=== PATIENT | male | born 1945 | race Caucasian/White ===

== ENCOUNTER 2022-09-03 07:21 | Inpatient (IN) | payer MEDICARE ==
[~2022-09-03] VITALS: Ht 177.8 cm; Wt 89.7 kg
[~2022-09-03 07:21] MED LIST: BIMA12.5OS OS; BRIM5DRO OP
[2022-09-03] MEDS ORDERED: 0.9%NACL 1000ML 1,000 ML IV SCH (08:00)
[2022-09-03 08:09] LABS: BASOPHILS % (AUTO) 0.4 % (0.0-5.0); EOSINOPHILS % (AUTO) 0.4 % (0.0-8.0); HEMATOCRIT 41.4 % (42-54); LYMPHOCYTES % (AUTO) 18.7 % (21.0-51.0); MEAN CORPUSCULAR HEMOGLOBIN 30.5 pg (27.0-33.0); MEAN CORPUSCULAR HGB CONC 34.5 g/dL (32.0-36.0); MEAN CORPUSCULAR VOLUME 88.3 fL (79-99); MONOCYTES % (AUTO) 9.1 % (3.0-13.0); PLATELET COUNT (AUTO) 246 K/uL (130-400); RED BLOOD CELL COUNT(AUTO) 4.69 MIL/uL (4.50-6.20); RED CELL DISTRIBUTION WIDTH 12.4 % (11.0-15.5); WHITE BLOOD COUNT (AUTO) 5.6 K/uL (4.8-10.8)
[2022-09-03 08:22] LABS: ALBUMIN 3.9 g/dL (3.5-5.0); CREATININE 0.9 mg/dL (0.5-1.5); POTASSIUM 3.8 mmol/L (3.5-5.1)
[2022-09-03 09:06] LABS: APPEARANCE,URINE CLEAR (CLEAR); BILIRUBIN,URINE NEGATIVE (NEGATIVE); COLOR,URINE YELLOW (YELLOW); GLUCOSE, URINE (UA) 200 mg/dL (NEGATIVE); KETONES,URINE 60 mg/dL (NEGATIVE); LEUKOCYTE ESTERASE ,URINE NEGATIVE Leu/uL (NEGATIVE); NITRATE,URINE NEGATIVE (NEGATIVE); OCCULT BLOOD,URINE NEGATIVE (NEGATIVE); PH,URINE 5.5 (5.0-8.0); PROTEIN,URINE 30 mg/dL (NEGATIVE); UROBILINOGEN,URINE 0.2 mg/dL (0.2-1.0)
[2022-09-03 09:20] LABS: BACTERIA,URINE RARE /HPF (None Seen); MUCUS,URINE RARE LPF (None Seen); SQUAMOUS EPITHELIAL CELL,UR RARE /HPF (0-2)
[2022-09-03 11:45] LABS: INR 0.94 (0.85-1.15); PROTHROMBIN TIME 10.3 SEC (9.6-11.6)
[2022-09-03 11:46] LABS: PARTIAL THROMBOPLASTIN TIME 27.2 SEC (26.3-35.5)
[2022-09-03 11:55] LABS: HEMOGLOBIN A1C 9.2 % (4.0-6.0); THYROID STIMULATING HORMONE 1.57 uIU/mL (0.36-3.74)
[2022-09-03] MEDS: 0.9%NACL 1000ML 1,000 ML IV SCH (15:01)
[2022-09-03] MEDS: INSULIN HUMULIN R 100 UNIT/ML 3ML SQ SCH ×3 (16:30→20:19)
[2022-09-03] MEDS ORDERED: METF-444 PO (17:36)
[2022-09-03] MEDS ORDERED: NETA2.5D OS (17:36)
[2022-09-03] MEDS ORDERED: CITA-107 PO (17:36)
[2022-09-03] MEDS ORDERED: ATOR20TA65 PO (17:36)
[2022-09-03] MEDS ORDERED: AMLO-257 PO (17:36)
[2022-09-03 18:10] VITALS: BP 143/78
[2022-09-03 19:40] VITALS: BP 155/91
[2022-09-03] MEDS: TIMOLOL OP SCH (21:00)
[2022-09-03] MEDS: Bimatoprost (Lumigan 0.01% Ophth Soln) OS SCH (21:00)
[2022-09-03] MEDS: NETARSUDIL MESYLATE OS SCH (21:00)
[2022-09-03] MEDS: BRIMONIDINE TARTRATE OP SCH (21:00)
[2022-09-03] MEDS: ATORVASTATIN 20 MG TABLET PO SCH (21:18)
[2022-09-03] MEDS ORDERED: HALOPERIDOL INJ 5 MG/ML VIAL IM ONE (23:00)
[2022-09-03 23:35] VITALS: BP 119/70
[2022-09-04] MEDS: 0.9%NACL 1000ML 1,000 ML IV SCH ×2 (00:50→15:02)
[2022-09-04 04:00] VITALS: BP 115/67
[2022-09-04] MEDS: INSULIN HUMULIN R 100 UNIT/ML 3ML SQ SCH ×5 (06:41→20:18)
[2022-09-04 07:28] LABS: BASOPHILS % (AUTO) 0.5 % (0.0-5.0); EOSINOPHILS % (AUTO) 1.1 % (0.0-8.0); HEMATOCRIT 42.5 % (42-54); LYMPHOCYTES % (AUTO) 29.2 % (21.0-51.0); MEAN CORPUSCULAR HEMOGLOBIN 30.5 pg (27.0-33.0); MEAN CORPUSCULAR HGB CONC 33.9 g/dL (32.0-36.0); MONOCYTES % (AUTO) 9.8 % (3.0-13.0); PLATELET COUNT (AUTO) 239 K/uL (130-400); RED BLOOD CELL COUNT(AUTO) 4.72 MIL/uL (4.50-6.20); RED CELL DISTRIBUTION WIDTH 12.3 % (11.0-15.5); WHITE BLOOD COUNT (AUTO) 5.6 K/uL (4.8-10.8)
[2022-09-04 07:46] VITALS: BP 148/87
[2022-09-04 07:57] LABS: CREATININE 0.8 mg/dL (0.5-1.5); POTASSIUM 3.4 mmol/L (3.5-5.1)
[2022-09-04] MEDS: TIMOLOL OP SCH ×2 (09:00→20:19)
[2022-09-04] MEDS: BRIMONIDINE TARTRATE OP SCH ×2 (09:00→20:19)
[2022-09-04] MEDS: ENOXAPARIN SODIUM 30 MG/0.3 ML SQ SCH (09:36)
[2022-09-04] MEDS: AMLODIPINE 5 MG TAB PO SCH (09:36)
[2022-09-04 11:09] VITALS: BP 147/77
[2022-09-04] MEDS: CITALOPRAM 20 MG TABLET PO SCH (11:12)
[2022-09-04 16:00] VITALS: BP 154/83
[2022-09-04] MEDS ORDERED: KCL 20 MEQ ERTAB PO PRN (16:30)
[2022-09-04] MEDS ORDERED: POTASSIUM CHLORIDE 10% ELIXIR 20 MEQ/15 ML UDCUP PO PRN (16:30)
[2022-09-04] MEDS ORDERED: POTASSIUM CHLORIDE 20MEQ/100ML 100 ML IV PRN (16:30)
[2022-09-04 19:00] VITALS: BP 153/84
[2022-09-04] MEDS: ATORVASTATIN 20 MG TABLET PO SCH (20:18)
[2022-09-04] MEDS: NETARSUDIL MESYLATE OS SCH (20:19)
[2022-09-04] MEDS: Bimatoprost (Lumigan 0.01% Ophth Soln) OS SCH (20:19)
[2022-09-04 23:36] VITALS: BP 152/72
[2022-09-05] VITALS (8 sets, daily range): BP systolic 121–181; BP diastolic 67–86
[2022-09-05] MEDS: 0.9%NACL 1000ML 1,000 ML IV SCH (03:29)
[2022-09-05] MEDS ORDERED: HYDRALAZINE 20MG/ML VIAL IV PRN (05:00)
[2022-09-05] MEDS: INSULIN HUMULIN R 100 UNIT/ML 3ML SQ SCH ×4 (06:40→20:50)
[2022-09-05] MEDS: TIMOLOL OP SCH ×2 (08:17→20:53)
[2022-09-05] MEDS: BRIMONIDINE TARTRATE OP SCH ×2 (08:17→20:53)
[2022-09-05] MEDS: DONEPEZIL HCL 5 MG TAB PO SCH (09:12)
[2022-09-05] MEDS: AMLODIPINE 5 MG TAB PO SCH (09:12)
[2022-09-05] MEDS: ENOXAPARIN SODIUM 30 MG/0.3 ML SQ SCH (09:13)
[2022-09-05] MEDS: CITALOPRAM 20 MG TABLET PO SCH (12:45)
[2022-09-05] MEDS: ATORVASTATIN 20 MG TABLET PO SCH (20:49)
[2022-09-05] MEDS: Bimatoprost (Lumigan 0.01% Ophth Soln) OS SCH (20:52)
[2022-09-05] MEDS: NETARSUDIL MESYLATE OS SCH (20:52)
[2022-09-05] MEDS ORDERED: TAMSULOSIN HCL 0.4 MG CAP.ER.24H PO SCH (21:00)
[2022-09-06 04:00] VITALS: BP 142/75
[2022-09-06] MEDS: INSULIN HUMULIN R 100 UNIT/ML 3ML SQ SCH ×3 (06:04→16:11)
[2022-09-06 08:00] VITALS: BP 159/88
[2022-09-06] MEDS: ENOXAPARIN SODIUM 30 MG/0.3 ML SQ SCH (08:58)
[2022-09-06] MEDS: AMLODIPINE 5 MG TAB PO SCH (08:58)
[2022-09-06] MEDS: DONEPEZIL HCL 5 MG TAB PO SCH (08:58)
[2022-09-06] MEDS: TIMOLOL OP SCH (08:59)
[2022-09-06] MEDS: BRIMONIDINE TARTRATE OP SCH (08:59)
[2022-09-06 12:00] VITALS: BP 137/71
[2022-09-06] MEDS: CITALOPRAM 20 MG TABLET PO SCH (14:03)
== END 2022-09-06 18:20 | DRG 74 ==
LOC: EDH 07:21 → EDHIP 11:15 → 4BH 18:10
PROVIDERS: ADMIT Internal Medicine; ATTEND Internal Medicine
DX: E11.42 Type 2 diabetes mellitus with diabetic polyneuropathy (principal); F02.82 Dementia in other diseases classified elsewhere, unspecified severity, with psychotic disturbance; E78.5 Hyperlipidemia, unspecified; G30.9 Alzheimer's disease, unspecified; H54.8 Legal blindness, as defined in USA; I10 Essential (primary) hypertension; R29.6 Repeated falls; W18.39XA Other fall on same level, initial encounter; Y93.89 Activity, other specified; Y92.89 Other specified places as the place of occurrence of the external cause; Y99.8 Other external cause status; Z91.81 History of falling
CPT/HCPCS: 36415; 70450; 71045; 80048; 80053; 81001; 82550; 82607; 82746; 82948; 83036; 83605; 83735; 84443; 84484; 85025; 85610; 85730; 87040; 87088; 92610; 93005; 93306; 93356; 93880; 97039; G0378; J0360; J1630; J1650; J1815; J7030

== ENCOUNTER 2022-12-20 13:02 | Emergency (ER) | payer MEDICARE ==
[~2022-12-20] VITALS: Ht 177.8 cm; Wt 81.6 kg
[~2022-12-20 13:02] MED LIST changes: +AMLO-257 PO; +ATOR20TA65 PO; +CITA-107 PO; +METF-444 PO; +NETA2.5D OS
[2022-12-20 13:26] VITALS: O2SAT 93
[2022-12-20 15:20] LABS: APPEARANCE,URINE TURBID (CLEAR); COLOR,URINE BROWN (YELLOW)
[2022-12-20 15:21] LABS: LEUKOCYTE ESTERASE ,URINE LARGE Leu/uL (NEGATIVE)
[2022-12-20 15:22] LABS: NITRATE,URINE NEGATIVE (NEGATIVE); UROBILINOGEN,URINE 0.2 mg/dL (0.2-1.0)
[2022-12-20 15:23] LABS: OCCULT BLOOD,URINE LARGE (NEGATIVE); PROTEIN,URINE 200 (2+) mg/dL (NEGATIVE)
[2022-12-20 15:24] LABS: GLUCOSE, URINE (UA) 100 mg/dL (NEGATIVE)
[2022-12-20 15:25] LABS: BILIRUBIN,URINE Small mg/dL (NEGATIVE); KETONES,URINE 15 mg/dL (NEGATIVE)
[2022-12-20 15:29] LABS: BACTERIA,URINE Many /HPF (None Seen); WBC,URINE TNTC /HPF (0-1)
[2022-12-20 16:34] LABS: BASOPHILS # (AUTO) 0.02 K/uL (0.00-0.20); BASOPHILS % (AUTO) 0.2 % (0.0-5.0); EOSINOPHILS # (AUTO) 0.04 K/uL (0.00-0.70); EOSINOPHILS % (AUTO) 0.4 % (0.0-8.0); IMMATURE GRANULOCYTE ABSOLUTE 0.05 K/uL (0-1); LYMPHOCYTES # (AUTO) 1.2 K/uL (1.0-4.8); LYMPHOCYTES % (AUTO) 11.3 % (21.0-51.0); MEAN CORPUSCULAR HEMOGLOBIN 29.3 pg (27.0-33.0); MEAN CORPUSCULAR HGB CONC 30.6 g/dL (32.0-36.0); MEAN CORPUSCULAR VOLUME 95.8 fL (79-99); MONOCYTES # (AUTO) 0.3 K/uL (0.1-1.0); MONOCYTES % (AUTO) 2.9 % (3.0-13.0); NEUTROPHILS # (AUTO) 8.7 K/uL (1.8-7.7); NEUTROPHILS % (AUTO) 84.7 % (40.0-77.0); PLATELET COUNT (AUTO) 215 K/uL (130-400); RED BLOOD CELL COUNT(AUTO) 5.22 MIL/uL (4.50-6.20); RED CELL DISTRIBUTION WIDTH 13.7 % (11.0-15.5); WHITE BLOOD COUNT (AUTO) 10.3 K/uL (4.8-10.8)
[2022-12-20 16:51] LABS: ALBUMIN 1.9 g/dL (3.5-5.0); BILIRUBIN,TOTAL 0.4 mg/dL (0.2-1.0); CREATININE 1.6 mg/dL (0.5-1.5); POTASSIUM 3.1 mmol/L (3.5-5.1); TOTAL PROTEIN, SERUM 7.5 g/dL (6.0-8.3)
[2022-12-20] MEDS ORDERED: ZOSYN 3.375GM +NS 50ML IVPB STA (17:18)
[2022-12-20] MEDS ORDERED: 0.9%NACL 1000ML 1,000 ML IV ONE (17:30)
[2022-12-20] MEDS ORDERED: CEPH500B PO (17:40)
[2022-12-20 17:41] VITALS: BP 109/58; PULSE 78; RESP 18
[2022-12-22] MEDS ORDERED: ACET650S14 RC (03:22)
[2022-12-22] MEDS ORDERED: BIMA12.5OS OS (03:25)
[2022-12-22] MEDS ORDERED: BISA10SU11 RC (03:27)
[2022-12-22] MEDS ORDERED: DONE5TAB33 PO (03:28)
[2022-12-22] MEDS ORDERED: TAMS-1 PO (03:29)
[2022-12-22] MEDS ORDERED: LORA2ORA5 PO (03:30)
[2022-12-22] MEDS ORDERED: morphine concentrate PO (03:33)
[2022-12-22] MEDS ORDERED: PROM25TA7 PO (03:34)
[2022-12-22] MEDS ORDERED: SENN-295 PO (03:36)
[2022-12-22] MEDS ORDERED: INSLAN SQ (03:40)
== END 2022-12-20 21:04 | disposition home or self-care (01) ==
LOC: EDH 13:02
DX: N39.0 Urinary tract infection, site not specified (principal); E87.0 Hyperosmolality and hypernatremia; Z51.5 Encounter for palliative care; Z46.6 Encounter for fitting and adjustment of urinary device; E11.9 Type 2 diabetes mellitus without complications; Z79.84 Long term (current) use of oral hypoglycemic drugs; Z79.899 Other long term (current) drug therapy; Z98.890 Other specified postprocedural states; Z88.8 Allergy status to other drugs, medicaments and biological substances
CPT/HCPCS: 99283; 96360; 80053; 85025; 87077; 87088; 87186; 81001; 36415; J7030

== ENCOUNTER 2023-01-05 11:42 | Emergency (ER) | payer MEDICARE ==
[~2023-01-05] VITALS: Ht 177.8 cm; Wt 68.0 kg
[~2023-01-05 11:42] MED LIST changes: +ACET650S14 RC; +AMOX1TAB16 PO; +ASPI-1005 PO; -ATOR20TA65 PO; +BISA10SU11 RC; +DONE5TAB33 PO; +INSLAN SQ; +LORA2ORA5 PO; +PROM25TA7 PO; +SENN-295 PO; +TAMS-1 PO; +morphine concentrate PO
[2023-01-05 11:44] VITALS: BP 114/64; PULSE 74; RESP 16
[2023-01-05 12:49] LABS: APPEARANCE,URINE CLOUDY (CLEAR); BILIRUBIN,URINE NEGATIVE (NEGATIVE); COLOR,URINE YELLOW (YELLOW); GLUCOSE, URINE (UA) NEGATIVE (NEGATIVE); KETONES,URINE NEGATIVE (NEGATIVE); LEUKOCYTE ESTERASE ,URINE 250 Leu/uL (NEGATIVE); NITRATE,URINE NEGATIVE (NEGATIVE); PH,URINE 5.5 (5.0-8.0); PROTEIN,URINE 20 mg/dL (NEGATIVE); UROBILINOGEN,URINE 0.2 mg/dL (0.2-1.0)
[2023-01-05 12:51] LABS: ADD UA MICROSCOPIC YES
[2023-01-05 12:57] LABS: BACTERIA,URINE FEW /HPF (None Seen); MUCUS,URINE RARE LPF (None Seen); RBC,URINE >100 /HPF (0-1); WBC,URINE 51-100 /HPF (0-1); YEAST,URINE BUDDING MANY /HPF (None Seen)
[2023-01-05] MEDS ORDERED: CEPH500B PO (12:57)
== END 2023-01-05 13:59 | disposition home or self-care (01) ==
LOC: EDH 11:42
DX: N39.0 Urinary tract infection, site not specified (principal); I10 Essential (primary) hypertension; E11.9 Type 2 diabetes mellitus without complications; F03.90 Unspecified dementia, unspecified severity, without behavioral disturbance, psychotic disturbance, mood disturbance, and anxiety; F41.9 Anxiety disorder, unspecified; Z91.018 Allergy to other foods; Z79.4 Long term (current) use of insulin; Z79.899 Other long term (current) drug therapy
CPT/HCPCS: 51702; 81001; 87088

== ENCOUNTER 2023-02-03 08:16 | Emergency (ER) | payer MEDICARE ==
[~2023-02-03] VITALS: Ht 180.3 cm; Wt 90.7 kg
[~2023-02-03 08:16] MED LIST changes: +CEPH500B PO
[2023-02-03 08:23] VITALS: BP 118/67; PULSE 69; RESP 16
== END 2023-02-03 10:37 | disposition home or self-care (01) ==
LOC: EDH 08:16
DX: T83.021A Displacement of indwelling urethral catheter, initial encounter (principal); F02.80 Dementia in other diseases classified elsewhere, unspecified severity, without behavioral disturbance, psychotic disturbance, mood disturbance, and anxiety; Z79.82 Long term (current) use of aspirin; Z79.84 Long term (current) use of oral hypoglycemic drugs; Z79.899 Other long term (current) drug therapy; Y82.9 Unspecified medical devices associated with adverse incidents; Y92.89 Other specified places as the place of occurrence of the external cause
CPT/HCPCS: 51702

== ENCOUNTER → 2023-02-06 | Emergency (ER) | payer MEDICARE ==
[~2023-02-06] VITALS: Ht 177.8 cm; Wt 74.8 kg
[2023-02-07 01:55] VITALS: BP 114/60; PULSE 88; RESP 18; O2SAT 99
== END ==
LOC: EDH 22:40
DX: T83.021A Displacement of indwelling urethral catheter, initial encounter (principal); F41.9 Anxiety disorder, unspecified; F02.83 Dementia in other diseases classified elsewhere, unspecified severity, with mood disturbance; F32.A Depression, unspecified; E11.9 Type 2 diabetes mellitus without complications; F02.84 Dementia in other diseases classified elsewhere, unspecified severity, with anxiety; I10 Essential (primary) hypertension; Z79.4 Long term (current) use of insulin; Z79.82 Long term (current) use of aspirin; Z79.84 Long term (current) use of oral hypoglycemic drugs; Z79.899 Other long term (current) drug therapy; Y82.9 Unspecified medical devices associated with adverse incidents; Y92.89 Other specified places as the place of occurrence of the external cause
CPT/HCPCS: 51702

== ENCOUNTER 2023-02-17 15:46 | Emergency (ER) | payer MEDICARE ==
[~2023-02-17] VITALS: Ht 188 cm; Wt 104.3 kg
[2023-02-17 18:25] LABS: APPEARANCE,URINE SL CLOUDY (CLEAR); BILIRUBIN,URINE NEGATIVE (NEGATIVE); COLOR,URINE YELLOW (YELLOW); GLUCOSE, URINE (UA) NEGATIVE (NEGATIVE); KETONES,URINE NEGATIVE (NEGATIVE); LEUKOCYTE ESTERASE ,URINE MODERATE Leu/uL (NEGATIVE); NITRATE,URINE NEGATIVE (NEGATIVE); OCCULT BLOOD,URINE MODERATE (NEGATIVE); PROTEIN,URINE 30 mg/dL (NEGATIVE)
[2023-02-17 18:27] LABS: ADD UA MICROSCOPIC YES
[2023-02-17 18:32] LABS: BACTERIA,URINE FEW /HPF (None Seen); MUCUS,URINE RARE LPF (None Seen); SQUAMOUS EPITHELIAL CELL,UR RARE /HPF (0-2); UNCLASSIFIED CRYSTAL 1 /HPF (None Seen); URIC ACID CRYSTALS,URINE FEW /LPF (None Seen); WBC,URINE >100 /HPF (0-1)
[2023-02-17 18:45] VITALS: BP 122/69; PULSE 80; RESP 18; O2SAT 99
[2023-02-17] MEDS ORDERED: CEFD300C3 PO (19:10)
[2023-02-17] MEDS ORDERED: CEFTRIAXONE 1G VIAL IM ONE (19:30)
== END 2023-02-17 21:28 | disposition home or self-care (01) ==
LOC: EDH 15:46
DX: T83.098A Other mechanical complication of other urinary catheter, initial encounter (principal); N39.0 Urinary tract infection, site not specified; I10 Essential (primary) hypertension; F32.A Depression, unspecified; E11.9 Type 2 diabetes mellitus without complications; Z79.4 Long term (current) use of insulin; Z79.82 Long term (current) use of aspirin; Z79.84 Long term (current) use of oral hypoglycemic drugs; Z79.899 Other long term (current) drug therapy; Y82.9 Unspecified medical devices associated with adverse incidents; Y92.89 Other specified places as the place of occurrence of the external cause
CPT/HCPCS: 99284; 87077; 87088; 87186; 81001; 96372; 51702; J0696

== ENCOUNTER 2023-03-07 08:01 | Emergency (ER) | payer MEDICARE ==
[~2023-03-07] VITALS: Ht 177.8 cm; Wt 59.0 kg
[~2023-03-07 08:01] MED LIST changes: +CEFD300C3 PO
[2023-03-07 08:03] VITALS: BP 134/78; PULSE 80; RESP 16
== END 2023-03-07 11:44 | disposition home or self-care (01) ==
LOC: EDH 08:01
DX: T83.021A Displacement of indwelling urethral catheter, initial encounter (principal); F03.90 Unspecified dementia, unspecified severity, without behavioral disturbance, psychotic disturbance, mood disturbance, and anxiety; Z79.82 Long term (current) use of aspirin; Z79.84 Long term (current) use of oral hypoglycemic drugs; Z79.899 Other long term (current) drug therapy; Y84.9 Medical procedure, unspecified as the cause of abnormal reaction of the patient, or of later complication, without mention of misadventure at the time of the procedure; Y92.89 Other specified places as the place of occurrence of the external cause
CPT/HCPCS: 51702

== ENCOUNTER 2023-03-10 16:09 | Emergency (ER) | payer MEDICARE ==
[~2023-03-10] VITALS: Ht 172.7 cm; Wt 68.0 kg
[2023-03-10 16:43] VITALS: BP 142/84; PULSE 78; RESP 18; O2SAT 98
== END 2023-03-10 16:46 | disposition home or self-care (01) ==
LOC: EDH 16:09
DX: T83.021A Displacement of indwelling urethral catheter, initial encounter (principal); F02.80 Dementia in other diseases classified elsewhere, unspecified severity, without behavioral disturbance, psychotic disturbance, mood disturbance, and anxiety; Z79.82 Long term (current) use of aspirin; Z79.84 Long term (current) use of oral hypoglycemic drugs; Z79.899 Other long term (current) drug therapy; Y82.9 Unspecified medical devices associated with adverse incidents; Y92.89 Other specified places as the place of occurrence of the external cause
CPT/HCPCS: 51702

== ENCOUNTER 2023-03-17 11:40 | Emergency (ER) | payer MEDICARE ==
[~2023-03-17] VITALS: Ht 177.8 cm; Wt 81.6 kg
[2023-03-17 14:26] VITALS: BP 134/72; PULSE 65; RESP 16; O2SAT 97
== END 2023-03-17 14:28 ==
LOC: EDH 11:40
DX: T83.091A Other mechanical complication of indwelling urethral catheter, initial encounter (principal); K94.23 Gastrostomy malfunction; E11.9 Type 2 diabetes mellitus without complications; E78.00 Pure hypercholesterolemia, unspecified; F02.80 Dementia in other diseases classified elsewhere, unspecified severity, without behavioral disturbance, psychotic disturbance, mood disturbance, and anxiety; I10 Essential (primary) hypertension; Z79.4 Long term (current) use of insulin; Z79.82 Long term (current) use of aspirin; Z79.84 Long term (current) use of oral hypoglycemic drugs; Z79.899 Other long term (current) drug therapy; Y82.9 Unspecified medical devices associated with adverse incidents; Y92.89 Other specified places as the place of occurrence of the external cause
CPT/HCPCS: 51702